=== PATIENT | female | born 1960 | race Caucasian/White ===

== ENCOUNTER 2017-01-05 18:49 | Inpatient (IN) | payer OTHER ==
[~2017-01-05] VITALS: Ht 170.2 cm; Wt 94.1 kg
[2017-01-05 20:48] LABS: BASOPHIL % 0.4 % (0-2); PLATELET COUNT 213 x10^3mcL (130-400); RED CELL DISTRIBUTION WIDTH 13.4 % (11.5-14.5)
[2017-01-05 20:55] LABS: CALCIUM 8.8 mg/dL (8.5-10.1); CARBON DIOXIDE 27.2 mmol/L (21-32); CHLORIDE SERUM 102 mmol/L (98-107); CREATININE SERUM 0.9 mg/dL (0.6-1.0); GFR1 > 60 mL/min; GLUCOSE SERUM 229 mg/dL (74-106); POTASSIUM SERUM 3.4 mmol/L (3.5-5.1); SODIUM SERUM 138 mmol/L (136-145)
[2017-01-05 21:00] LABS: ALBUMIN 3.6 g/dL (3.4-5.0); ALKALINE PHOSPHATASE 85 U/L (46-116); ALT/SGPT 19 U/L (14-59); AST/SGOT 10 U/L (15-37); BILIRUBIN TOTAL 0.3 mg/dL (0.20-1.00); TOTAL PROTEIN, SERUM 7.6 g/dL (6.4-8.2)
[2017-01-05] MEDS ORDERED: IMITREX50 MG PO (21:47)
[2017-01-05] MEDS ORDERED: INVOKANA300 MG PO (21:47)
[2017-01-05] MEDS ORDERED: AMITRIPTYLINE H25 MG PO (21:47)
[2017-01-05] MEDS ORDERED: NIFEDIPINE ER90 M2 PO (21:48)
[2017-01-05] MEDS ORDERED: SIMVASTATIN80 M1 PO (21:48)
[2017-01-05] MEDS ORDERED: HUMALOG100 UNIT/1 SQ (21:48)
[2017-01-05] MEDS ORDERED: GLUCOPHAGE XR500 MG PO (21:49)
[2017-01-05] MEDS ORDERED: BUS10 PO (21:49)
[2017-01-05] MEDS ORDERED: ACYCLOVIR800 MG PO (21:49)
[2017-01-05] MEDS ORDERED: ROBAXIN-750750 MG PO (21:50)
[2017-01-05] MEDS ORDERED: KAPVAY0.1 MG PO (21:50)
[2017-01-05] MEDS ORDERED: NOR10T PO (21:50)
[2017-01-05] MEDS ORDERED: PANTOPRAZOLE SO40 M1 PO (21:50)
[2017-01-05] MEDS ORDERED: CLARITIN LIQUI-10 MG PO (21:51)
[2017-01-05] MEDS ORDERED: PROVENTIL0.09 MG/A1 INH (21:51)
[2017-01-05] MEDS ORDERED: COZAAR100 MG PO (21:51)
[2017-01-05] MEDS ORDERED: METOPROLOL SUC100 M2 PO (21:51)
[2017-01-05] MEDS ORDERED: AMLODIPINE BESYL5 M2 PO (21:52)
[2017-01-05] MEDS ORDERED: LANTUS SOLOS100 U/M1 SQ (21:52)
[2017-01-05] MEDS ORDERED: BACLOFEN20 MG PO (21:52)
[2017-01-05] MEDS ORDERED: ACT15 PO (21:53)
[2017-01-05 21:58] LABS: AMPHETAMINE QUAL UR NONE DETECTED (NEG <=1000)
[2017-01-05 22:23] VITALS: BP 170/94
[2017-01-05 22:26] VITALS: Ht 170.2 cm; Wt 94.1 kg
[2017-01-05 22:30] LABS: microscopic required? YES; urine erythrocyte NEGATIVE (NEGATIVE)
[2017-01-05 22:40] LABS: MAGNESIUM 2.3 mg/dL (1.8-2.4); PHOSPHOROUS 3.4 mg/dL (2.5-4.9)
[2017-01-05 22:43] LABS: T3 TOTAL 1.06 ng/mL
[2017-01-05 22:49] LABS: FREE T4 1.04 ng/dL (0.76-1.46); FREE THYROXINE INDEX 3.5 ug/dL (1.4-4.5); T4(THYROXINE) 10.4 ug/dL (4.7-13.3)
[2017-01-05 22:54] LABS: CHOLESTEROL/HDL RATIO 5.1
[2017-01-05 23:51] VITALS: BP 170/94
[2017-01-06 00:10] VITALS: BP 168/85
[2017-01-06 03:47] LABS: PLATELET COUNT 196 x10^3mcL (130-400); RED CELL DISTRIBUTION WIDTH 12.2 % (11.5-14.5)
[2017-01-06 03:58] LABS: CALCIUM 8.5 mg/dL (8.5-10.1); CARBON DIOXIDE 28.8 mmol/L (21-32); CHLORIDE SERUM 106 mmol/L (98-107); GFR1 > 60 mL/min; GLUCOSE SERUM 210 mg/dL (74-106); PHOSPHOROUS 3.5 mg/dL (2.5-4.9); POTASSIUM SERUM 4.2 mmol/L (3.5-5.1); SODIUM SERUM 140 mmol/L (136-145)
[2017-01-06 06:37] VITALS: BP 151/78
[2017-01-06 07:50] VITALS: BP 159/82
[2017-01-06 12:00] VITALS: BP 126/71
[2017-01-06] MEDS ORDERED: CAT0.1 PO (14:18)
[2017-01-06] MEDS ORDERED: ECO81 PO (14:22)
[2017-01-06] MEDS ORDERED: GLUCOPHAGE XR500 MG PO (14:44)
[2017-01-06] MEDS ORDERED: LANTUS SOLOS100 U/M1 SQ (14:44)
[2017-01-06 15:04] VITALS: BP 126/71
[2017-01-06] MEDS ORDERED: HUMALOG100 UNIT/1 SQ (16:20)
== END 2017-01-06 17:06 | disposition home or self-care (01) | DRG 205 ==
LOC: ED 18:49 → DU 21:25
PROVIDERS: Emergency Medicine; ADMIT Family Medicine Sports Medicine
DX: M94.0 Chondrocostal junction syndrome [Tietze] (principal); N17.0 Acute kidney failure with tubular necrosis; E11.65 Type 2 diabetes mellitus with hyperglycemia; E11.51 Type 2 diabetes mellitus with diabetic peripheral angiopathy without gangrene; E87.6 Hypokalemia; I16.0 Hypertensive urgency; I07.1 Rheumatic tricuspid insufficiency; M51.34 Other intervertebral disc degeneration, thoracic region; E78.5 Hyperlipidemia, unspecified; E66.9 Obesity, unspecified; Z68.32 Body mass index [BMI] 32.0-32.9, adult; Z79.4 Long term (current) use of insulin
CPT/HCPCS: 83880; 84439; 94150; J1815; J2270; J2405; J7030; J7620; Q0092

== ENCOUNTER 2017-03-07 22:54 | Emergency (ER) | payer OTHER ==
[~2017-03-07 22:54] MED LIST: ACT15 PO; ACYCLOVIR800 MG PO; AMITRIPTYLINE H25 MG PO; AMLODIPINE BESYL5 M2 PO; BACLOFEN20 MG PO; BUS10 PO; CAT0.1 PO; CLARITIN LIQUI-10 MG PO; COZAAR100 MG PO; ECO81 PO; GLUCOPHAGE XR500 MG PO; HUMALOG100 UNIT/1 SQ; IMITREX50 MG PO; INVOKANA300 MG PO; KAPVAY0.1 MG PO; LANTUS SOLOS100 U/M1 SQ; METOPROLOL SUC100 M2 PO; NIFEDIPINE ER90 M2 PO; NOR10T PO; PANTOPRAZOLE SO40 M1 PO; PROVENTIL0.09 MG/A1 INH; ROBAXIN-750750 MG PO; SIMVASTATIN80 M1 PO
[2017-03-08 00:17] VITALS: BP 145/81
== END 2017-03-08 00:51 | disposition home or self-care (01) ==
LOC: ED 22:54
DX: S70.02XA Contusion of left hip, initial encounter (principal); I10 Essential (primary) hypertension; E11.9 Type 2 diabetes mellitus without complications; E78.00 Pure hypercholesterolemia, unspecified; M16.12 Unilateral primary osteoarthritis, left hip; Z88.0 Allergy status to penicillin; W18.30XA Fall on same level, unspecified, initial encounter; Y93.89 Activity, other specified; Y99.8 Other external cause status; Y92.89 Other specified places as the place of occurrence of the external cause
CPT/HCPCS: J1170

== ENCOUNTER 2018-01-03 15:39 | Inpatient (IN) | payer OTHER ==
[~2018-01-03] VITALS: Ht 170.2 cm; Wt 89.1 kg
[2018-01-03 15:46] VITALS: Ht 170.2 cm; Wt 89.1 kg
[2018-01-03 17:02] LABS: PLATELET COUNT 201 x10^3mcL (130-400); RED CELL DISTRIBUTION WIDTH 13.6 % (11.5-14.5)
[2018-01-03 17:03] LABS: BASOPHIL % 0 % (0-2)
[2018-01-03 17:18] LABS: CALCIUM 9.4 mg/dL (8.5-10.1); CARBON DIOXIDE 26.6 mmol/L (21-32); CHLORIDE SERUM 103 mmol/L (98-107); CREATININE SERUM 0.9 mg/dL (0.6-1.0); GFR1 > 60 mL/min; GLUCOSE SERUM 181 mg/dL (74-106); POTASSIUM SERUM 3.6 mmol/L (3.5-5.1); SODIUM SERUM 139 mmol/L (136-145)
[2018-01-03 17:24] LABS: ALBUMIN 4.1 g/dL (3.4-5.0); ALKALINE PHOSPHATASE 87 U/L (46-116); ALT/SGPT 25 U/L (14-59); AST/SGOT 16 U/L (15-37); BILIRUBIN TOTAL 0.4 mg/dL (0.20-1.00); LIPASE 244 IU/L (73-393)
[2018-01-03 17:26] LABS: TOTAL PROTEIN, SERUM 8.4 g/dL (6.4-8.2)
[2018-01-03 21:40] VITALS: BP 147/78
[2018-01-04 05:39] VITALS: BP 188/86
[2018-01-04 06:24] LABS: ALBUMIN 3.5 g/dL (3.4-5.0); ALKALINE PHOSPHATASE 73 U/L (46-116); ALT/SGPT 22 U/L (14-59); AST/SGOT 11 U/L (15-37); BILIRUBIN TOTAL 0.3 mg/dL (0.20-1.00); CALCIUM 8.8 mg/dL (8.5-10.1); CARBON DIOXIDE 26.3 mmol/L (21-32); CHLORIDE SERUM 107 mmol/L (98-107); CREATININE SERUM 0.7 mg/dL (0.6-1.0); GFR1 > 60 mL/min; GLUCOSE SERUM 111 mg/dL (74-106); MAGNESIUM 2.2 mg/dL (1.8-2.4); PHOSPHOROUS 3.4 mg/dL (2.5-4.9); POTASSIUM SERUM 3.3 mmol/L (3.5-5.1); SODIUM SERUM 142 mmol/L (136-145); TOTAL PROTEIN, SERUM 7.2 g/dL (6.4-8.2)
[2018-01-04 07:11] LABS: BASOPHIL % 0.3 % (0-2); PLATELET COUNT 151 x10^3mcL (130-400); RED CELL DISTRIBUTION WIDTH 13.7 % (11.5-14.5)
[2018-01-04 08:04] VITALS: BP 178/90
[2018-01-04 10:00] VITALS: BP 173/83
[2018-01-04 12:50] VITALS: BP 145/74
[2018-01-04 16:17] VITALS: BP 156/84
[2018-01-04 18:13] LABS: microscopic required? YES; urine erythrocyte NEGATIVE (NEGATIVE)
[2018-01-04 19:10] VITALS: BP 151/74
[2018-01-05 06:04] VITALS: BP 170/93
[2018-01-05 06:46] LABS: ALBUMIN 3.4 g/dL (3.4-5.0); ALKALINE PHOSPHATASE 79 U/L (46-116); ALT/SGPT 20 U/L (14-59); AST/SGOT 12 U/L (15-37); BILIRUBIN TOTAL 0.35 mg/dL (0.20-1.00); CALCIUM 8.9 mg/dL (8.5-10.1); CHLORIDE SERUM 108 mmol/L (98-107); CREATININE SERUM 0.8 mg/dL (0.6-1.0); GFR1 > 60 mL/min; GLUCOSE SERUM 111 mg/dL (74-106); LIPASE 247 IU/L (73-393); MAGNESIUM 1.9 mg/dL (1.8-2.4); PHOSPHOROUS 2.9 mg/dL (2.5-4.9); POTASSIUM SERUM 3.3 mmol/L (3.5-5.1); SODIUM SERUM 143 mmol/L (136-145); TOTAL PROTEIN, SERUM 7.2 g/dL (6.4-8.2)
[2018-01-05 06:50] LABS: CARBON DIOXIDE 24.9 mmol/L (21-32)
[2018-01-05 08:21] VITALS: BP 122/77
[2018-01-05 11:32] VITALS: BP 146/81
[2018-01-05 17:34] VITALS: BP 143/75
[2018-01-05 20:47] VITALS: BP 132/71
[2018-01-06 05:47] VITALS: BP 127/79
[2018-01-06 06:31] LABS: ALKALINE PHOSPHATASE 70 U/L (46-116); ALT/SGPT 20 U/L (14-59); AST/SGOT 13 U/L (15-37); BILIRUBIN TOTAL 0.3 mg/dL (0.20-1.00); CALCIUM 8.7 mg/dL (8.5-10.1); CHLORIDE SERUM 108 mmol/L (98-107); CREATININE SERUM 0.7 mg/dL (0.6-1.0); GFR1 > 60 mL/min; GLUCOSE SERUM 96 mg/dL (74-106); MAGNESIUM 1.9 mg/dL (1.8-2.4); PHOSPHOROUS 3.4 mg/dL (2.5-4.9); POTASSIUM SERUM 3.4 mmol/L (3.5-5.1); SODIUM SERUM 142 mmol/L (136-145); TOTAL PROTEIN, SERUM 6.7 g/dL (6.4-8.2)
[2018-01-06 06:42] LABS: ALBUMIN 3.2 g/dL (3.4-5.0)
[2018-01-06 08:22] VITALS: BP 171/70
[2018-01-06 13:03] VITALS: BP 151/89
[2018-01-06 17:30] VITALS: BP 140/71
[2018-01-06] MEDS ORDERED: APR25 PO (19:35)
[2018-01-06] MEDS ORDERED: CAT0.1 PO (19:35)
[2018-01-06] MEDS ORDERED: MECLIZINE HYDRO25 M1 PO (19:36)
[2018-01-06 19:37] VITALS: BP 140/71
== END 2018-01-06 20:56 | disposition home health service (06) | DRG 305 ==
LOC: ED 15:39 → DU 19:44 → MU 19:44 → DU 19:44 → MU 19:44 → DU 01-04 14:15
PROVIDERS: Emergency Medicine; Internal Medicine Pulmonary Disease
DX: I16.0 Hypertensive urgency (principal); K86.2 Cyst of pancreas; E86.0 Dehydration; R42 Dizziness and giddiness; I10 Essential (primary) hypertension; E11.9 Type 2 diabetes mellitus without complications; E87.6 Hypokalemia; R11.10 Vomiting, unspecified; K52.9 Noninfective gastroenteritis and colitis, unspecified; E86.9 Volume depletion, unspecified
CPT/HCPCS: 82962; 97110-GP; 97116-GP; 97530-GP; J0696; J1815; J2270; J2405; J2550; J2765; J3490; J7030; J8597